=== PATIENT | male | born 1955 | race Caucasian/White ===

== ENCOUNTER 2018-02-18 05:56 | Inpatient (IN) ==
[2018-02-18] MEDS ORDERED: VANCOMYCIN 1,000 MG VIAL ONE (06:06)
[2018-02-18] MEDS ORDERED: ceFAZolin 1,000 MG VIAL ONE (06:06)
[2018-02-18] MEDS ORDERED: FAMOTIDINE 20 MG/2 ML VIAL IV ONE ×2 (07:06→07:45)
[2018-02-18] MEDS ORDERED: DIAZEPAM 5 MG TABLET PO ONE (07:06)
[2018-02-18] MEDS ORDERED: DIAZEPAM 5 MG TABLET ONE (07:45)
[2018-02-18] MEDS: LACTATED RINGERS 1,000 ML IV SCH ×3 (08:15→23:45)
[2018-02-18] MEDS ORDERED: BACITRACIN OINT 0.9 GM PACK TOP ONE (08:58)
[2018-02-18] MEDS ORDERED: TRANEXAMIC ACID 1,000 MG/10 ML VIAL IV ONE (08:58)
[2018-02-18] MEDS ORDERED: VANCOMYCIN INJ 1,000 MG in SODIUM CHLORIDE 0.9% 250 ML IV ONE (09:24)
[2018-02-18] MEDS ORDERED: ceFAZolin 1,000 MG in SYRINGE 1 EACH IV ONE (10:00)
[2018-02-18] MEDS ORDERED: ACETAMINOPHEN 1,000 MG/100 ML VIAL IV ONE (10:24)
[2018-02-18] MEDS ORDERED: oxyCODONE/ACETAMINOPHEN 5-325 MG TABLET PO PRN (11:23)
[2018-02-18] MEDS ORDERED: MORPHINE 4 MG/1 ML VIAL IV PRN ×2 (11:23)
[2018-02-18] MEDS ORDERED: oxyCODONE IR 5 MG TABLET PO PRN ×2 (11:23)
[2018-02-18] MEDS ORDERED: MAGNESIUM HYDROXIDE SUSP 30 ML UDCUP PO PRN (11:23)
[2018-02-18] MEDS ORDERED: ONDANSETRON 4 MG/2 ML VIAL IV PRN ×2 (11:23→12:07)
[2018-02-18] MEDS ORDERED: ZALEPLON 5 MG CAPSULE PO PRN (11:23)
[2018-02-18] MEDS ORDERED: diphenhydrAMINE CAP 25 MG CAPSULE PO PRN (11:23)
[2018-02-18] MEDS ORDERED: ROPIVACAINE 0.5% 30 ML VIAL ONE (11:40)
[2018-02-18] MEDS: HYDROmorphone 2 MG/1 ML VIAL IV PRN ×4 (12:04→12:24)
[2018-02-18] MEDS ORDERED: ONDANSETRON 4 MG/2 ML VIAL ONE ×2 (12:06→12:43)
[2018-02-18] MEDS ORDERED: HYDROmorphone 2 MG/1 ML VIAL ONE (12:06)
[2018-02-18] MEDS ORDERED: MIDAZOLAM 2 MG/2 ML VIAL ONE ×2 (12:42→12:44)
[2018-02-18] MEDS ORDERED: LABETALOL 20 MG/4 ML SYRINGE IV ONE (12:42)
[2018-02-18] MEDS ORDERED: SEVOFLURANE 1 UNIT/15 MINUTE INH ONE (12:42)
[2018-02-18] MEDS ORDERED: PROPOFOL 200 MG/20 ML VIAL IV ONE (12:42)
[2018-02-18] MEDS ORDERED: fentaNYL 100 MCG/2 ML VIAL ONE ×3 (12:43→12:45)
[2018-02-18] MEDS ORDERED: LACTATED RINGERS 1,000 ML IV ONE (12:43)
[2018-02-18] MEDS ORDERED: hydrALAZINE 20 MG/1 ML VIAL ONE (12:43)
[2018-02-18] MEDS ORDERED: SODIUM CHLORIDE 0.9% 100 ML IV ONE (12:43)
[2018-02-18] MEDS ORDERED: SUCCINYLCHOLINE 200 MG/10 ML VIAL ONE (12:43)
[2018-02-18] MEDS ORDERED: ePHEDrine 50 MG/ML AMP ONE (12:45)
[2018-02-18] MEDS: KETOROLAC 30 MG/1 ML VIAL IV SCH ×2 (14:03→18:32)
[2018-02-18] MEDS: ceFAZolin 2,000 MG in PREMIX 1 EACH IV SCH (16:37)
[2018-02-18] MEDS: ACETAMINOPHEN 500 MG TABLET PO SCH ×2 (16:37→21:04)
[2018-02-18] MEDS: PARoxetine 20 MG TABLET PO SCH (18:32)
[2018-02-18] MEDS: DOCUSATE SODIUM 100 MG CAPSULE PO SCH (21:04)
[2018-02-18] MEDS: FUROSEMIDE 40 MG TABLET PO SCH (21:05)
[2018-02-18] MEDS: GABAPENTIN 300 MG CAPSULE PO SCH (21:07)
[2018-02-19] MEDS: KETOROLAC 30 MG/1 ML VIAL IV SCH ×2 (00:50→06:50)
[2018-02-19] MEDS: ceFAZolin 2,000 MG in PREMIX 1 EACH IV SCH (00:52)
[2018-02-19] MEDS: ACETAMINOPHEN 500 MG TABLET PO SCH ×2 (05:42→09:41)
[2018-02-19] MEDS: LACTATED RINGERS 1,000 ML IV SCH ×2 (06:06→09:46)
[2018-02-19 06:38] LABS: Basophils # 0.1 10*3/uL (0.0-0.2); Basophils % 0.8 % (0.0-0.8); Eosinophils # 0.1 10*3/uL (0.0-0.87); Eosinophils % 0.8 % (0.00-10.9); Hematocrit 32.5 VOL% (42.0-52.0); Hemoglobin 10.5 GM/DL (14.0-18.0); Immature Granulocytes % 0.5 %; Immature Granulocytes Absolute 0.06 #; Lymphocytes # 2.4 10*3/uL (1.4-4.0); Lymphocytes % 19.3 % (21.2-54.2); Mean Corpuscular HGB Conc 32.3 GM/DL (32-36); Mean Corpuscular Hemoglobin 31 PG (27-34); Mean Corpuscular Volume 94.5 FL (87-102); Mean Platelet Volume 10.7 FL (9.6-12.0); Monocytes # 1.9 10*3/uL (0.11-0.8); Monocytes % 15.5 % (1.7-12.7); Neutrophils # 7.8 10*3/uL (1.4-7.4); Neutrophils % 63.1 % (38.7-73.9); Platelet Count 229 T/CUMM (130-400); Red Blood Count 3.44 MC/CUMM (3.8-5.5); Red Cell Distribution Width 13.9 % (9.3-17.3); White Blood Count 12.3 T/CUMM (4-12)
[2018-02-19 06:57] LABS: Calcium 7.5 MG/DL (8.5-10.1); Osmolality,Calculated 277.4 MOS/KG (273-304); Potassium 3.9 MMOL/L (3.5-5.1)
[2018-02-19] MEDS ORDERED: EDOXABAN TOSYLATE 60 MG PO SCH (09:00)
[2018-02-19] MEDS: amLODIPine 10 MG TABLET PO SCH (09:41)
[2018-02-19] MEDS: DOCUSATE SODIUM 100 MG CAPSULE PO SCH ×2 (09:41→20:32)
[2018-02-19] MEDS: GABAPENTIN 300 MG CAPSULE PO SCH ×2 (09:42→20:32)
[2018-02-19] MEDS: FUROSEMIDE 40 MG TABLET PO SCH ×2 (09:42→20:32)
[2018-02-19] MEDS: oxyCODONE/ACETAMINOPHEN 5-325 MG TABLET PO PRN ×2 (11:15→18:58)
[2018-02-19] MEDS ORDERED: SIMETHICONE CHEW 125 MG TABLET PO PRN (17:12)
[2018-02-19] MEDS: CELECOXIB 200 MG CAPSULE PO SCH (17:26)
[2018-02-19] MEDS: PARoxetine 20 MG TABLET PO SCH (18:57)
[2018-02-20] MEDS: ACETAMINOPHEN 325 MG TABLET PO PRN ×2 (00:15→06:19)
[2018-02-20 06:04] LABS: Basophils # 0.1 10*3/uL (0.0-0.2); Basophils % 0.5 % (0.0-0.8); Eosinophils # 0.2 10*3/uL (0.0-0.87); Eosinophils % 1.3 % (0.00-10.9); Hematocrit 32.2 VOL% (42.0-52.0); Hemoglobin 10.7 GM/DL (14.0-18.0); Immature Granulocytes % 0.5 %; Immature Granulocytes Absolute 0.08 #; Lymphocytes # 2.4 10*3/uL (1.4-4.0); Lymphocytes % 16.1 % (21.2-54.2); Mean Corpuscular HGB Conc 33.2 GM/DL (32-36); Mean Corpuscular Hemoglobin 31 PG (27-34); Mean Platelet Volume 11.1 FL (9.6-12.0); Monocytes # 2.2 10*3/uL (0.11-0.8); Monocytes % 14.7 % (1.7-12.7); Neutrophils % 66.9 % (38.7-73.9); Platelet Count 228 T/CUMM (130-400); Red Cell Distribution Width 13.9 % (9.3-17.3); White Blood Count 14.9 T/CUMM (4-12)
[2018-02-20] MEDS: CELECOXIB 200 MG CAPSULE PO SCH (08:43)
[2018-02-20] MEDS: DOCUSATE SODIUM 100 MG CAPSULE PO SCH (08:43)
[2018-02-20] MEDS: GABAPENTIN 300 MG CAPSULE PO SCH (08:44)
[2018-02-20] MEDS: amLODIPine 10 MG TABLET PO SCH (08:44)
[2018-02-20] MEDS: FUROSEMIDE 40 MG TABLET PO SCH (08:44)
[2018-02-20] MEDS: oxyCODONE/ACETAMINOPHEN 5-325 MG TABLET PO PRN (10:58)
[2018-02-20 12:07] VITALS: BP 137/78
== END 2018-02-20 15:02 | disposition home health service (06) | DRG 470 ==
LOC: N.OR 05:56 → N.SDSINP 05:57 → N.3E 11:23 → EDSTATUS 12:30 → N.3E 13:01
PROVIDERS: ADMIT Orthopaedic Surgery; ATTEND Orthopaedic Surgery

== ENCOUNTER 2018-08-04 05:38 | Inpatient (IN) ==
[2018-08-04] MEDS ORDERED: DIAZEPAM 5 MG TABLET PO ONE (07:37)
[2018-08-04] MEDS ORDERED: FAMOTIDINE 20 MG TABLET PO ONE (07:37)
[2018-08-04] MEDS ORDERED: VANCOMYCIN INJ 1,000 MG in SODIUM CHLORIDE 0.9% 250 ML IV ONE (08:00)
[2018-08-04] MEDS ORDERED: LACTATED RINGERS 1,000 ML IV SCH (08:00)
[2018-08-04] MEDS ORDERED: ceFAZolin 2,000 MG in PREMIX 1 EACH IV ONE (08:00)
[2018-08-04] MEDS ORDERED: VANCOMYCIN 1,000 MG VIAL ONE (08:00)
[2018-08-04] MEDS ORDERED: FAMOTIDINE 20 MG TABLET ONE (08:10)
[2018-08-04] MEDS ORDERED: DIAZEPAM 5 MG TABLET ONE (08:10)
[2018-08-04] MEDS ORDERED: ROPIVACAINE 0.5% 30 ML VIAL ONE ×2 (09:47→10:05)
[2018-08-04] MEDS ORDERED: oxyCODONE/ACETAMINOPHEN 5-325 MG TABLET PO PRN (10:51)
[2018-08-04] MEDS ORDERED: ZALEPLON 5 MG CAPSULE PO PRN (10:51)
[2018-08-04] MEDS ORDERED: MORPHINE 4 MG/1 ML VIAL IV PRN ×2 (10:51)
[2018-08-04] MEDS ORDERED: ONDANSETRON 4 MG/2 ML VIAL IV PRN ×2 (10:51→12:50)
[2018-08-04] MEDS ORDERED: MAGNESIUM HYDROXIDE SUSP 30 ML UDCUP PO PRN (10:51)
[2018-08-04] MEDS ORDERED: diphenhydrAMINE CAP 25 MG CAPSULE PO PRN (10:51)
[2018-08-04] MEDS ORDERED: oxyCODONE IR 5 MG TABLET PO PRN ×2 (10:51)
[2018-08-04] MEDS ORDERED: BACITRACIN OINT 0.9 GM PACK TOP ONE (11:24)
[2018-08-04] MEDS ORDERED: ACETAMINOPHEN 1,000 MG/100 ML VIAL IV ONE ×2 (11:48→13:23)
[2018-08-04] MEDS: LACTATED RINGERS 1,000 ML IV SCH ×2 (12:41→20:52)
[2018-08-04] MEDS ORDERED: ONDANSETRON 4 MG/2 ML VIAL ONE ×2 (12:48→13:23)
[2018-08-04] MEDS ORDERED: HYDROmorphone 2 MG/1 ML VIAL ONE (12:48)
[2018-08-04] MEDS: HYDROmorphone 2 MG/1 ML VIAL IV PRN ×4 (12:50→13:05)
[2018-08-04] MEDS ORDERED: PROPOFOL 200 MG/20 ML VIAL IV ONE (13:21)
[2018-08-04] MEDS ORDERED: fentaNYL 100 MCG/2 ML VIAL ONE (13:22)
[2018-08-04] MEDS ORDERED: MIDAZOLAM 2 MG/2 ML VIAL ONE (13:22)
[2018-08-04] MEDS ORDERED: SEVOFLURANE 1 UNIT/15 MINUTE INH ONE (13:22)
[2018-08-04] MEDS ORDERED: SUCCINYLCHOLINE 200 MG/10 ML VIAL ONE (13:23)
[2018-08-04] MEDS ORDERED: LACTATED RINGERS 1,000 ML IV ONE (13:23)
[2018-08-04] MEDS ORDERED: ROCURONIUM 100 MG/10 ML VIAL IV ONE (13:23)
[2018-08-04] MEDS ORDERED: KETOROLAC 30 MG/1 ML VIAL ONE (13:24)
[2018-08-04] MEDS: KETOROLAC 30 MG/1 ML VIAL IV SCH ×2 (13:25→19:35)
[2018-08-04 15:31] LABS: Basophils # 0.1 10*3/uL (0.0-0.2); Basophils % 0.5 % (0.0-0.8); Eosinophils % 0.1 % (0.00-10.9); Hematocrit 38.8 VOL% (42.0-52.0); Hemoglobin 12.5 GM/DL (14.0-18.0); Immature Granulocytes % 0.6 %; Immature Granulocytes Absolute 0.16 #; Lymphocytes # 1.2 10*3/uL (1.4-4.0); Lymphocytes % 4.7 % (21.2-54.2); Mean Corpuscular HGB Conc 32.2 GM/DL (32-36); Mean Corpuscular Hemoglobin 30 PG (27-34); Mean Corpuscular Volume 93.7 FL (87-102); Mean Platelet Volume 10.5 FL (9.6-12.0); Monocytes # 1.6 10*3/uL (0.11-0.8); Neutrophils # 23.1 10*3/uL (1.4-7.4); Neutrophils % 88.1 % (38.7-73.9); Platelet Count 328 T/CUMM (130-400); Red Blood Count 4.14 MC/CUMM (3.8-5.5); Red Cell Distribution Width 15.1 % (9.3-17.3); White Blood Count 26.2 T/CUMM (4-12)
[2018-08-04 16:08] LABS: Calcium 8.3 MG/DL (8.5-10.1); Osmolality,Calculated 281.4 MOS/KG (273-304); Potassium 4.1 MMOL/L (3.5-5.1)
[2018-08-04] MEDS: ACETAMINOPHEN 500 MG TABLET PO SCH (17:50)
[2018-08-04 18:20] LABS: Lymphocytes 9 % (20-55); Platelet Estimate Normal; Segmented Neutrophils 85 % (50-85); Total Cells Counted 100
[2018-08-04] MEDS: PARoxetine 20 MG TABLET PO SCH (19:34)
[2018-08-04] MEDS: ceFAZolin 2,000 MG in PREMIX 1 EACH IV SCH (19:45)
[2018-08-04] MEDS: GABAPENTIN 300 MG CAPSULE PO SCH (20:52)
[2018-08-04] MEDS: DOCUSATE SODIUM 100 MG CAPSULE PO SCH (20:52)
[2018-08-04] MEDS: FUROSEMIDE 40 MG TABLET PO SCH (20:52)
[2018-08-05] MEDS: ACETAMINOPHEN 500 MG TABLET PO SCH ×3 (01:13→11:29)
[2018-08-05] MEDS: KETOROLAC 30 MG/1 ML VIAL IV SCH (01:13)
[2018-08-05] MEDS: LACTATED RINGERS 1,000 ML IV SCH (05:16)
[2018-08-05] MEDS: FONDAPARINUX 2.5 MG/0.5 ML SYRINGE SUBCUT SCH (05:17)
[2018-08-05] MEDS: ceFAZolin 2,000 MG in PREMIX 1 EACH IV SCH (05:17)
[2018-08-05] MEDS ORDERED: ceFAZolin 2,000 MG in PREMIX 1 EACH IV SCH (05:30)
[2018-08-05 06:30] LABS: Basophils # 0.1 10*3/uL (0.0-0.2); Basophils % 0.7 % (0.0-0.8); Eosinophils # 0.1 10*3/uL (0.0-0.87); Eosinophils % 0.9 % (0.00-10.9); Hematocrit 32.2 VOL% (42.0-52.0); Immature Granulocytes % 0.5 %; Immature Granulocytes Absolute 0.07 #; Lymphocytes # 2.2 10*3/uL (1.4-4.0); Lymphocytes % 16.2 % (21.2-54.2); Mean Corpuscular HGB Conc 31.4 GM/DL (32-36); Mean Corpuscular Hemoglobin 30 PG (27-34); Mean Corpuscular Volume 94.7 FL (87-102); Mean Platelet Volume 10.6 FL (9.6-12.0); Monocytes # 2.1 10*3/uL (0.11-0.8); Neutrophils # 9.2 10*3/uL (1.4-7.4); Neutrophils % 66.7 % (38.7-73.9); Red Cell Distribution Width 15.2 % (9.3-17.3)
[2018-08-05] MEDS ORDERED: KETOROLAC 30 MG/1 ML VIAL IV SCH (06:30)
[2018-08-05 06:40] LABS: Hemoglobin 10.1 GM/DL (14.0-18.0); White Blood Count 13.7 T/CUMM (4-12)
[2018-08-05 06:41] LABS: Platelet Count 249 T/CUMM (130-400)
[2018-08-05 06:44] LABS: Calcium 7.6 MG/DL (8.5-10.1); Osmolality,Calculated 278.4 MOS/KG (273-304)
[2018-08-05 07:34] LABS: Eosinophils 2 % (0-10); Hypochromasia 1+; Lymphocytes 19 % (20-55); Platelet Estimate Adequate; Segmented Neutrophils 70 % (50-85); Total Cells Counted 100
[2018-08-05] MEDS ORDERED: EDOXABAN TOSYLATE 60 MG PO SCH (09:00)
[2018-08-05] MEDS: amLODIPine 10 MG TABLET PO SCH (09:18)
[2018-08-05] MEDS: GABAPENTIN 300 MG CAPSULE PO SCH ×2 (09:19→21:46)
[2018-08-05] MEDS: FUROSEMIDE 40 MG TABLET PO SCH ×2 (09:19→21:47)
[2018-08-05] MEDS: DOCUSATE SODIUM 100 MG CAPSULE PO SCH ×2 (09:19→21:47)
[2018-08-05] MEDS ORDERED: ACETAMINOPHEN 500 MG TABLET ONE (11:01)
[2018-08-05] MEDS: oxyCODONE/ACETAMINOPHEN 5-325 MG TABLET PO PRN ×2 (13:18→19:15)
[2018-08-05] MEDS: CELECOXIB 200 MG CAPSULE PO SCH (17:54)
[2018-08-05] MEDS: PARoxetine 20 MG TABLET PO SCH (19:15)
[2018-08-06] MEDS: FONDAPARINUX 2.5 MG/0.5 ML SYRINGE SUBCUT SCH (05:11)
[2018-08-06 05:35] LABS: Basophils # 0.1 10*3/uL (0.0-0.2); Basophils % 0.7 % (0.0-0.8); Eosinophils # 0.3 10*3/uL (0.0-0.87); Eosinophils % 1.5 % (0.00-10.9); Hematocrit 33.4 VOL% (42.0-52.0); Hemoglobin 10.7 GM/DL (14.0-18.0); Immature Granulocytes % 0.5 %; Immature Granulocytes Absolute 0.08 #; Lymphocytes # 1.9 10*3/uL (1.4-4.0); Mean Corpuscular Hemoglobin 30 PG (27-34); Mean Corpuscular Volume 93.8 FL (87-102); Mean Platelet Volume 10.6 FL (9.6-12.0); Monocytes # 2.1 10*3/uL (0.11-0.8); Monocytes % 12.5 % (1.7-12.7); Neutrophils # 12.6 10*3/uL (1.4-7.4); Neutrophils % 73.8 % (38.7-73.9); Platelet Count 267 T/CUMM (130-400); Red Blood Count 3.56 MC/CUMM (3.8-5.5)
[2018-08-06] MEDS: oxyCODONE/ACETAMINOPHEN 5-325 MG TABLET PO PRN (07:24)
[2018-08-06 07:42] VITALS: BP 192/84
[2018-08-06] MEDS: DOCUSATE SODIUM 100 MG CAPSULE PO SCH (09:54)
[2018-08-06] MEDS: CELECOXIB 200 MG CAPSULE PO SCH (09:54)
[2018-08-06] MEDS: GABAPENTIN 300 MG CAPSULE PO SCH (09:54)
[2018-08-06] MEDS: FUROSEMIDE 40 MG TABLET PO SCH (09:54)
[2018-08-06] MEDS: amLODIPine 10 MG TABLET PO SCH (09:54)
== END 2018-08-06 10:36 | disposition home health service (06) | DRG 470 ==
LOC: N.OR 05:38 → N.SDSINP 05:39 → N.3E 13:44
PROVIDERS: ADMIT Orthopaedic Surgery; ATTEND Orthopaedic Surgery

== ENCOUNTER 2022-05-15 14:57 | Inpatient (IN) ==
[2022-05-15] MEDS ORDERED: ASPIRIN 325 MG TABLET PO STA (15:35)
[2022-05-15 16:14] LABS: Arterial Base Excess iSTAT 1 MMOL/L (-2.5-2.5); Arterial Bicarbonate iSTAT 25.5 MMOL/L (20-26); Arterial O2 Saturation iSTAT 94 % (95-100); Arterial PCO2 iSTAT 39 MM HG (35-48); Arterial PO2 iSTAT 69 MM HG (80-95); Arterial Total CO2 iSTAT 27 MMO/L (23-27)
[2022-05-15 16:29] LABS: Basophils # 0.1 10*3/uL (0.0-0.2); Basophils % 0.7 % (0.0-0.8); Eosinophils # 0.1 10*3/uL (0.0-0.87); Eosinophils % 0.6 % (0.00-10.9); Hematocrit 32.5 VOL% (42.0-52.0); Immature Granulocytes % 0.4 %; Immature Granulocytes Absolute 0.06 #; Lymphocytes # 1.2 10*3/uL (1.4-4.0); Lymphocytes % 7.4 % (21.2-54.2); Mean Corpuscular HGB Conc 30.8 GM/DL (32-36); Mean Corpuscular Volume 91.8 FL (87-102); Monocytes # 1.3 10*3/uL (0.11-0.8); Monocytes % 7.8 % (1.7-12.7); Neutrophils % 83.1 % (38.7-73.9); Platelet Count 398 T/CUMM (130-400); Red Blood Count 3.54 MC/CUMM (3.8-5.5); Red Cell Distribution Width 14.6 % (9.3-17.3); White Blood Count 16.3 T/CUMM (4-12)
[2022-05-15 16:43] LABS: INR 1.2; PT Patient Result 12.7 SECS (10.5-12.0)
[2022-05-15 16:45] LABS: Albumin 3.3 G/DL (3.4-5.0); Bilirubin,Total 0.8 MG/DL (0.20-1.00); Calcium 8.6 MG/DL (8.5-10.1); Osmolality,Calculated 281.3 MOS/KG (273-304); Potassium 4.1 MMOL/L (3.5-5.1); Total Protein 7.2 G/DL (6.4-8.2)
[2022-05-15] MEDS ORDERED: cefTRIAXone 1,000 MG in SODIUM CHLORIDE 0.9% 100 ML IV STA (17:37)
[2022-05-15] MEDS ORDERED: AZITHROMYCIN INJ 500 MG in SODIUM CHLORIDE 0.9% 250 ML IV STA (17:37)
[2022-05-15] MEDS ORDERED: NON-FORMULARY MEDICATION (Tadalafil [Cialis] 10 mg Tablet) PO PRN (19:42)
[2022-05-15] MEDS ORDERED: ONDANSETRON 4 MG/2 ML VIAL IV PRN (19:45)
[2022-05-15] MEDS ORDERED: MAGNESIUM SULF RIDER 4 GM/100 ML PREMIX IV PRN (19:45)
[2022-05-15] MEDS ORDERED: GLUCAGON 1 MG VIAL IM PRN (19:45)
[2022-05-15] MEDS ORDERED: MAGNESIUM SULF RIDER 2 GM/50 ML PREMIX IV PRN (19:45)
[2022-05-15] MEDS ORDERED: DEXTROSE 10% 250 ML BAG IV PRN (20:02)
[2022-05-15] MEDS: FUROSEMIDE 40 MG/4 ML VIAL IV SCH (20:55)
[2022-05-15] MEDS: ROSUVASTATIN 10 MG TABLET PO SCH (20:55)
[2022-05-15] MEDS: methylPREDNISolone SOD SUC 125 MG/2 ML VIAL IV SCH (20:57)
[2022-05-15] MEDS ORDERED: ACETAMINOPHEN 325 MG TABLET ONE (23:23)
[2022-05-15] MEDS: ACETAMINOPHEN 325 MG TABLET PO PRN (23:25)
[2022-05-16] MEDS: ALBUTEROL/IPRATROPIUM 3 ML NEB RESP TX SCH ×4 (00:23→21:01)
[2022-05-16] MEDS: methylPREDNISolone SOD SUC 125 MG/2 ML VIAL IV SCH ×2 (04:06→08:30)
[2022-05-16 04:17] LABS: Basophils # 0.1 10*3/uL (0.0-0.2); Basophils % 0.3 % (0.0-0.8); Hematocrit 32.6 VOL% (42.0-52.0); Hemoglobin 10.1 GM/DL (14.0-18.0); Immature Granulocytes % 0.3 %; Immature Granulocytes Absolute 0.06 #; Lymphocytes # 0.6 10*3/uL (1.4-4.0); Lymphocytes % 3.7 % (21.2-54.2); Mean Corpuscular Volume 92.9 FL (87-102); Mean Platelet Volume 9.2 FL (9.6-12.0); Monocytes # 0.1 10*3/uL (0.11-0.8); Monocytes % 0.6 % (1.7-12.7); Neutrophils % 95.1 % (38.7-73.9); Platelet Count 411 T/CUMM (130-400); Red Blood Count 3.51 MC/CUMM (3.8-5.5); Red Cell Distribution Width 14.6 % (9.3-17.3); White Blood Count 17.2 T/CUMM (4-12)
[2022-05-16 04:37] LABS: Calcium 8.6 MG/DL (8.5-10.1); Osmolality,Calculated 279.5 MOS/KG (273-304); Potassium 4.6 MMOL/L (3.5-5.1)
[2022-05-16] MEDS: METOPROLOL SUCCINATE XL 25 MG TABLET PO SCH (08:30)
[2022-05-16] MEDS: FUROSEMIDE 40 MG/4 ML VIAL IV SCH ×2 (08:30→15:29)
[2022-05-16] MEDS: RIVAROXABAN 10 MG TABLET PO SCH (08:30)
[2022-05-16] MEDS: PANTOPRAZOLE 40 MG TABLET PO SCH (08:30)
[2022-05-16] MEDS: amLODIPine 10 MG TABLET PO SCH (08:30)
[2022-05-16] MEDS: NEBIVOLOL 10 MG TABLET PO SCH (08:30)
[2022-05-16] MEDS: VALSARTAN 160 MG TABLET PO SCH (08:30)
[2022-05-16] MEDS: ASPIRIN EC 81 MG TABLET PO SCH (08:30)
[2022-05-16] MEDS: PARoxetine 20 MG TABLET PO SCH (08:30)
[2022-05-16] MEDS ORDERED: DEXTROSE 10% 250 ML BAG IV PRN (14:31)
[2022-05-16] MEDS: ACETAMINOPHEN 325 MG TABLET PO PRN ×2 (15:29→21:18)
[2022-05-16] MEDS: INSULIN LISPRO 100 UNIT/ML SUBCUT SCH ×2 (16:38→21:19)
[2022-05-16] MEDS: cefTRIAXone 1,000 MG in SODIUM CHLORIDE 0.9% 100 ML IV SCH (18:30)
[2022-05-16] MEDS ORDERED: methylPREDNISolone SOD SUC 40 MG/1 ML VIAL IV SCH (21:00)
[2022-05-16] MEDS: AZITHROMYCIN INJ 500 MG in SODIUM CHLORIDE 0.9% 250 ML IV SCH (21:17)
[2022-05-16] MEDS ORDERED: ALUMINUM/MAGNES/SIMETH MAX STR 30 ML UDCUP PO PRN (21:17)
[2022-05-16] MEDS: ROSUVASTATIN 10 MG TABLET PO SCH (21:18)
[2022-05-17] MEDS: ALBUTEROL/IPRATROPIUM 3 ML NEB RESP TX SCH ×4 (01:22→20:05)
[2022-05-17] MEDS: ACETAMINOPHEN 325 MG TABLET PO PRN (06:39)
[2022-05-17 06:51] LABS: Basophils % 0.2 % (0.0-0.8); Hematocrit 31.4 VOL% (42.0-52.0); Hemoglobin 9.6 GM/DL (14.0-18.0); Immature Granulocytes % 0.5 %; Immature Granulocytes Absolute 0.09 #; Lymphocytes # 1.4 10*3/uL (1.4-4.0); Lymphocytes % 7.6 % (21.2-54.2); Mean Corpuscular HGB Conc 30.6 GM/DL (32-36); Mean Corpuscular Volume 92.1 FL (87-102); Mean Platelet Volume 9.6 FL (9.6-12.0); Monocytes # 1.2 10*3/uL (0.11-0.8); Monocytes % 6.7 % (1.7-12.7); Platelet Count 436 T/CUMM (130-400); Red Blood Count 3.41 MC/CUMM (3.8-5.5); Red Cell Distribution Width 14.6 % (9.3-17.3); White Blood Count 18.3 T/CUMM (4-12)
[2022-05-17 07:06] LABS: Calcium 8.8 MG/DL (8.5-10.1); Osmolality,Calculated 280.7 MOS/KG (273-304)
[2022-05-17] MEDS: PARoxetine 20 MG TABLET PO SCH (08:57)
[2022-05-17] MEDS: ASPIRIN EC 81 MG TABLET PO SCH (08:57)
[2022-05-17] MEDS: RIVAROXABAN 10 MG TABLET PO SCH (08:57)
[2022-05-17] MEDS: PANTOPRAZOLE 40 MG TABLET PO SCH (08:57)
[2022-05-17] MEDS: METOPROLOL SUCCINATE XL 25 MG TABLET PO SCH (08:57)
[2022-05-17] MEDS: NEBIVOLOL 10 MG TABLET PO SCH (08:58)
[2022-05-17] MEDS: INSULIN LISPRO 100 UNIT/ML SUBCUT SCH ×4 (08:58→21:38)
[2022-05-17] MEDS: VALSARTAN 160 MG TABLET PO SCH (08:58)
[2022-05-17] MEDS: amLODIPine 10 MG TABLET PO SCH (08:58)
[2022-05-17] MEDS: FUROSEMIDE 40 MG/4 ML VIAL IV SCH ×2 (08:59→15:42)
[2022-05-17] MEDS: cefTRIAXone 1,000 MG in SODIUM CHLORIDE 0.9% 100 ML IV SCH (09:09)
[2022-05-17] MEDS: AZITHROMYCIN INJ 500 MG in SODIUM CHLORIDE 0.9% 250 ML IV SCH (17:52)
[2022-05-17] MEDS: ROSUVASTATIN 10 MG TABLET PO SCH (20:27)
[2022-05-18] MEDS: ALBUTEROL/IPRATROPIUM 3 ML NEB RESP TX SCH ×3 (00:10→14:34)
[2022-05-18] MEDS: ACETAMINOPHEN 325 MG TABLET PO PRN (05:26)
[2022-05-18 05:31] LABS: Basophils # 0.1 10*3/uL (0.0-0.2); Basophils % 0.5 % (0.0-0.8); Eosinophils # 0.3 10*3/uL (0.0-0.87); Eosinophils % 1.5 % (0.00-10.9); Hematocrit 31.1 VOL% (42.0-52.0); Hemoglobin 9.6 GM/DL (14.0-18.0); Immature Granulocytes % 0.4 %; Immature Granulocytes Absolute 0.07 #; Lymphocytes # 2.9 10*3/uL (1.4-4.0); Lymphocytes % 17.9 % (21.2-54.2); Mean Corpuscular HGB Conc 30.9 GM/DL (32-36); Mean Corpuscular Volume 92.6 FL (87-102); Mean Platelet Volume 9.8 FL (9.6-12.0); Monocytes # 1.9 10*3/uL (0.11-0.8); Monocytes % 11.5 % (1.7-12.7); Neutrophils % 68.2 % (38.7-73.9); Platelet Count 418 T/CUMM (130-400); Red Blood Count 3.36 MC/CUMM (3.8-5.5); Red Cell Distribution Width 14.5 % (9.3-17.3); White Blood Count 16.4 T/CUMM (4-12)
[2022-05-18 05:41] LABS: Calcium 8.3 MG/DL (8.5-10.1); Osmolality,Calculated 281.4 MOS/KG (273-304); Potassium 3.9 MMOL/L (3.5-5.1)
[2022-05-18] MEDS ORDERED: AZITHROMYCIN 250 MG TABLET PO SCH (09:00)
[2022-05-18] MEDS: VALSARTAN 160 MG TABLET PO SCH (10:12)
[2022-05-18] MEDS: PARoxetine 20 MG TABLET PO SCH (10:12)
[2022-05-18] MEDS: FUROSEMIDE 40 MG/4 ML VIAL IV SCH (10:13)
[2022-05-18] MEDS: NEBIVOLOL 10 MG TABLET PO SCH (10:13)
[2022-05-18] MEDS: amLODIPine 10 MG TABLET PO SCH (10:13)
[2022-05-18] MEDS: METOPROLOL SUCCINATE XL 25 MG TABLET PO SCH (10:13)
[2022-05-18] MEDS: RIVAROXABAN 10 MG TABLET PO SCH (10:13)
[2022-05-18] MEDS: PANTOPRAZOLE 40 MG TABLET PO SCH (10:13)
[2022-05-18] MEDS: ASPIRIN EC 81 MG TABLET PO SCH (10:13)
[2022-05-18] MEDS: INSULIN LISPRO 100 UNIT/ML SUBCUT SCH ×2 (10:14→16:23)
[2022-05-18] MEDS: cefTRIAXone 1,000 MG in SODIUM CHLORIDE 0.9% 100 ML IV SCH (10:20)
[2022-05-18 11:52] VITALS: BP 131/59
== END 2022-05-18 15:54 | disposition home health service (06) | DRG 193 ==
LOC: N.ED 14:57 → N.EDINP 19:46 → N.5E 05-16 14:30
PROVIDERS: ADMIT Internal Medicine; ATTEND Internal Medicine